=== PATIENT | male | born 1955 ===

== ENCOUNTER 2025-06-24 11:36 | Outpatient (AMB) | payer MEDICARE, SELFPAY ==
--- NOTE | 2025-06-24 11:58 | MHC.OFFVIS ---
Intake Visit Reasons: 6m Vascular Dementia Allergies lisinopril Allergy (Unknown, Verified 06/17/25 09:23) Unknown HPI Comments Details: The patient is a 69-year-old male presenting for further evaluation and management of vascular dementia and consideration of mirtazapine for weight loss and appetite. He has a history of falls, generally controlled using a cane or walker, and previous engagement in physical therapy designed to maintain mobility. His primary care physician has initiated considerations of mirtazapine primarily for weight loss and appetite improvement, a topic also discussed during this visit. Blood pressure management is ongoing, with medications recently prescribed, but perhaps due for a refill soon. His physical activity is generally limited to his home environment, and he has used a wheelchair for longer distances. [facility] Medical History (Updated 06/24/25 @ 12:03 by Rebecca Spears MD) Vascular dementia Review of Systems Const Details: - Neurologic: Reports use of ambulatory aids; Denies recent severe mobility issues. - Psychiatric: Reports discussion of mirtazapine use for appetite and weight loss. - Cardiovascular: Denies issues beyond managed hypertension. - General: Denies significant travel or activities outside of home environments. Physical Exam Neuro Other: Mental Status: Alert and oriented to person, place, and time. Normal attention. Normal spontaneous speech, fluency, and comprehension. Cranial Nerves: CN II: Visual vidal full to confrontation, visual acuity intact. CN III, IV, : Pupils equal, round, reactive to light and accommodation. Extraocular movements are normal. CN V: Facial sensation is normal. CN VII: Facial movements symmetrical. CN VIII: Hearing intact to bedside conversation is normal. CN IX, X: Palate elevates symmetrically. CN XI: Shoulder shrug and head turn symmetrical. CN XII: Tongue midline without atrophy or fasciculations. Moderately severe ataxia for which he was using a walker. Extrapyramidal: Full facial expressions and blinking. No rigidity. Movements are appropriate with no tremor or abnormality. Speech: Normal; no dysarthria or tremor. Assessment & Plan Assessment & Plan (1) Vascular dementia: Code(s): F01.50 - Vascular dementia, unspecified severity, without behavioral disturbance, psychotic disturbance, mood disturbance, and anxiety Category: Medical Qualifiers: Dementia severity: moderate Dementia behavioral or psychological symptom: without behavioral, psychotic, or mood disturbance or anxiety Qualified Code(s): F01.B0 - Vascular dementia, moderate, without behavioral disturbance, psychotic disturbance, mood disturbance, and anxiety Plan Impression: Vascular dementia Rec: Namenda 10mg bid BP meds Statin Baby aspirin daily Walker Medications: New memantine 10 mg PO BID 180 tabs 1RF Coding Level of Care Code Est Pt Level 4 (11069) Diagnoses Moderate vascular dementia without behavioral disturbance, psychotic disturbance, mood disturbance, or anxiety F01.B0 Dementia severity: moderate Dementia behavioral or psychological symptom: without behavioral, psychotic, or mood disturbance or anxiety
--- OUTSIDE RECORDS SUMMARY | 2025-06-24 12:56 | XMS_ITS | Clinical Summary ---
Author Organization [facility] Address [address] [place] [id number] Phone Care Team Providers Care Patient Account Representative Name Role Phone Rich Mendoza Primary Care Provider [phone] Allergies Active Allergy Reactions Criticality Noted Date Comments Lisinopril Other (see comments) 03/23/2007 COUGH Shrimp Extract Other (see comments) 10/19/2024 Medications amLODIPine (NORVASC) 5 MG tablet Take 1 tablet by mouth 1 (one) time each day 4 Active aspirin (ST TRENA) 81 MG EC tablet Take 1 tablet by mouth 1 (one) time each day 4 Active atorvastatin (LIPITOR) 80 MG tablet Take 1 tablet by mouth 1 (one) time each day 4 Active fluticasone (FLONASE) 50 MCG/ACT nasal spray Administer 50 mcg into affected nostril(s) 3 Active losartan (COZAAR) 100 MG tablet Take 1 tablet by mouth 1 (one) time each day 4 Active metoprolol succinate XL (TOPROL XL) 50 MG 24 hr tablet Take 1 tablet by mouth 1 (one) time each day 4 Active psyllium (METAMUCIL) 58.6 % packet Take 1 packet by mouth 1 (one) time each day 2 Active triamterene-hyd roCHLOROthiazid e (MAXZIDE-25) 37.5-25 MG per tablet Take 1 tablet by mouth 1 (one) time each day 4 Active clopidogrel (Plavix) 75 MG tablet Take 75 mg by mouth 3 Active Active Problems Problem Noted Date Diagnosed Date Polyp of colon 10/16/2024 Diverticular disease 10/16/2024 Weakness of left hand 10/16/2024 Prediabetes 01/09/2021 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 History of repair of musculotendinous cuff of sh [place] 09/14/2016 Overview (10/16/2024): 2001 Hyperlipidemia 01/28/2016 Essential hypertension 12/10/2015 Nonsustained ventricular tachycardia 01/03/2015 Overview (10/16/2024): 11 beat run on Holter of 12/2014 History of cerebrovascular accident 06/24/2014 Overview (10/16/2024): Lacunar infarct 11/2014 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 History of repair of hip joint 05/12/2009 Overview (10/16/2024): S/p bilateral total hip replacement by Dr Valderrama Body mass index 30+ - obesity 01/04/2006 Immunizations Immunization Administration Dates Next Due COVID-19 mRNA, bivalent, angelito ginal/Omicron BA.1, Non-[place] (Spikevax Bivalent) Moderna 10/11/2023 Influenza, Unspecified 11/15/2014 Pfizer SARS-COV-2 09/03/2021,12/11/2020,11/20/19 21 Pneumococcal Conjugate 04/14/2023 Shingrix 03/12/2022 Tdap 11/17/2018,07/03/2008 Family History Medical History Relation Comments Hypertension Father joint problems Mother Hypertension Sister Relation Status Comments Father Mother Sister Social History Tobacco Use Types Packs/Day Years Used Date Smoking Tobacco: Never Assessed Sex and Gender Information Value Date Recorded Sex Assigned at Not on file Legal Sex Male 12:14 PM EDT Gender Identity Not on file Sexual Orientation Not on file Last Filed Vital Signs Vital Sign Reading Time Taken Comments Blood Pressure 116/66 11/19/2024 3:19 PM EST Pulse 58 11/19/2024 3:19 PM EST Temperature - - Respiratory Rate - - Oxygen Saturation - - Inhaled Oxygen Concentration - - Weight 82.1 kg (181 lb) 11/19/2024 3:19 PM EST Height 177.8 cm (5' 10 ) 10/19/2024 9:26 AM EST Body Mass Index 25.97 10/19/2024 9:26 AM EST Plan of Treatment Health Maintenance Due Date Last Done Comments Pneumococcal Vaccine: 50+ Ye ars (1 of 2 - PCV) 1976 04/14/2023 Colorectal Cancer Screening: Annual FOBT 2006 Colorectal Cancer Screening: Colonoscopy 2006 Colorectal Cancer Screening: Sigmoidoscopy 2006 Influenza Vaccine (#1) 2025 11/15/2014 Hepatitis B Vaccine Aged Out No longe r eligible based on patient's age to complete this topic Insurance [id number] Medicare Care Teams Patient Account Representative Relationship Specialty Start Date End Date Rich Mendoza [address] [place] [id number] PCP - General Internal Medicine 08/13/24
--- OUTSIDE RECORDS SUMMARY | 2025-06-24 12:56 | XMS_ITS | Clinical Summary ---
Author Organization 175 [facility] Address [address] [place] [address] Phone Care Team Providers Care [employer] Name Role Phone Rich Lafleur MD Primary Care Provider [phone] Allergies Active Allergy Reactions Criticality Noted Date Comments Lisinopril Cough 08/09/2024 Shellfish Derived Unknown 08/12/2024 Shrimp Extract Other 10/19/2024 Medications aspirin 81 mg EC tablet Take 1 tablet (81 mg total) by mouth 1 (one) time each day. Active fluticasone propionate (FLONASE) 50 mcg/actuation nasal spray 1 [place] by Each Nare route daily for 180 days. - Each Nare Active mv-min/folic/vit K/lycop/coQ10 (DAILY MULTIVITAMIN ORAL) Take by mouth 1 (one) time each day. Active psyllium (METAMUCIL) 3.4 gram packet Take 1 packet by mouth 1 (one) time each day. 30 packet 11 09/18/20 24 Active memantine (NAMENDA) 10 mg tablet Take 1 tablet (10 mg total) by mouth 2 (two) times a day. for 90 days 12/17/19 25 Active triamterene-hydr oCHLOROthiazide (MAXZIDE-25) 37.5-25 mg per tabletIndication s:Essential (primary) hypertension TAKE 1 TABLET BY MOUTH EVERY DAY 90 tablet 1 02/06/20 25 Active food supplemt, lactose-reduced (Boost High Protein) 0.08 gram- 1.1 kcal/mL liquid Take 1 Can by mouth 2 (two) times a day. 60 mL 11 05/08/20 25 Active polyethylene glycol (Golytely) 236-22.74-6.74 -5.86 gram solution Take 4L by mouth once for one dose. May substitue any PEG. Starting at 2PM the day before your procedure drink 1 8oz glasses at your own pace until you complete half of the gallon. Finish 2nd half of the gallon at 8PM. 4000 mL 05/17/20 25 Active bisacodyL (DULCOLAX) 5 mg EC tablet Take 2 tablets by mouth right before beginning bowel prep. See instructions provided by the office 2 tablet 05/17/20 25 Active amLODIPine (NORVASC) 5 mg tablet Take 1 tablet (5 mg total) by mouth 1 (one) time each day. 90 tablet 1 06/11/20 25 Active atorvastatin (LIPITOR) 80 mg tabletIndication s:Hyperlipidemia , unspecified Take 1 tablet (80 mg total) by mouth 1 (one) time each day. 90 tablet 1 06/11/20 25 Active losartan (COZAAR) 100 mg tabletIndication s:Essential (primary) hypertension Take 1 tablet (100 mg total) by mouth 1 (one) time each day. 90 tablet 1 06/11/20 25 Active metoprolol succinate (TOPROL-XL) 50 mg 24 hr tablet Take 1 tablet (50 mg total) by mouth 1 (one) time each day. TAKE 1 TABLET BY MOUTH EVERY DAY 90 tablet 1 06/11/20 25 Active metoprolol succinate (TOPROL-XL) 50 mg 24 hr tablet TAKE 1 TABLET BY MOUTH EVERY DAY 025 Discontin ued(Reord er) losartan (COZAAR) 100 mg tabletIndication s:Essential (primary) hypertension Take 1 tablet (100 mg total) by mouth 1 (one) time each day. 90 tablet 1 11/05/20 24 025 Discontin ued(Reord er) atorvastatin (LIPITOR) 80 mg tabletIndication s:Hyperlipidemia , unspecified TAKE 1 TABLET BY MOUTH EVERY DAY 90 tablet 1 02/20/20 25 025 Discontin ued(Reord er) amLODIPine (NORVASC) 5 mg tablet TAKE 1 TABLET BY MOUTH 1 TIME EACH DAY. 90 tablet 1 04/24/20 25 025 Discontin ued(Reord er) Active Problems Problem Noted Date Diagnosed Date Benign prostatic hyperplasia with lower urinary tract symptoms 12/13/2024 Assessment & Plan (12/13/2024 12:40 PM EST): Continue tamsulosin. He has been monitored by urology. Vascular dementia ([facility] V24, [facility] V28) 04/2025 Assessment & Plan (05/08/2025 5:55 PM EDT): Patient's states that patient at times defecates on himself and she has to clean up for him. Patient has a follow-up appointment with neurology coming up for his dementia with behavioral disturbances. Assessment & Plan (02/01/2025 12:27 PM EDT): Underlying dementia, he will follow-up with neurology. Will check his urine analysis and recheck his electrolytes. Continue memantine for now. Assessment & Plan (12/13/2024 12:40 PM EST): He is being prescribed memantine by neurology and has a follow-up appointment booked already. Obesity (BMI 30-39.9) 08/09/2024 Non-sustained ventricular ta chycardia ([facility] V24, [facility] V28) 08/09/2024 Essential hypertension 08/09/2024 Assessment & Plan (05/08/2025 5:55 PM EDT): Follow low-sodium diet. Patient will continue amlodipine, losartan, metoprolol. Assessment & Plan (12/13/2024 12:40 PM EST): Follow low-sodium diet. Continue amlodipine, losartan, triamterene-hydrochlorothiazide. PPD positive, treated 08/09/2024 Prediabetes 08/09/2024 Assessment & Plan (05/08/2025 5:55 PM EDT): We will monitor A1c levels. Orders: Hemoglobin A1c; Future Assessment & Plan (02/01/2025 12:27 PM EDT): Will monitor A1c. Diabetic diet discussed. Orders: Hemoglobin A1c; Future Diverticulosis 08/09/2024 Colon polyp 08/09/2024 Encounters Date Type Department Care Team Description 06/11/2025 4:30 PM EDT Telemedicine Internal Medicine - [address] [phone] Rich Lafleur MD Weight loss (Primary Dx); Hyperlipidemia, unspecified; Essential (primary) hypertension 06/03/2025 10:32 AM EDT Anesthesia Event [facility] [address] [place] [address] Nish Miller DO McAdams, Megan, SIMON 06/03/2025 9:45 AM EDT - 06/03/2025 11:59 PM EDT Hospital Encounter [facility] [address] [place] [phone] Perez Thornton DO Walsh, Michael, DO McAdams, Megan, [employer] Unintentional weight loss; Abnormal CT scan, colon Discharge Disposition: Home or Self Care 06/03/2025 Telephone [facility] [address] [facility] [address] [phone] Perez Thornton DO 05/29/2025 Telephone [facility] [address] [facility] [address] [phone] Perez Thornton DO special procedure 05/08/2025 3:00 PM EDT Office Visit Internal Medicine - [address] [phone] Rich Lafleur MD Weight loss (Primary Dx); Vascular dementia with other behavioral disturbance, unspecified dementia severity (CMS/HCC V24, CMS/HCC V28); Essential hypertension; Prediabetes; Hyperlipidemia, unspecified hyperlipidemia type 05/06/2025 Telephone [facility] [address] [facility] [address] [place] [phone] Rosa Correa LPN Anticoagulation (Colonoscopy on 05/31/[address] Thornton) 04/26/2025 10:40 AM EDT Office Visit [facility] [address] [place] [address] Lexy Choi, DAVID Unintentional weight loss (Primary Dx); Abnormal CT scan, colon; Chronic constipation 04/26/2025 Telephone [facility] [address] [place] [address] Lexy Choi, DAVID from Last 3 Months Immunizations Name Administration Dates Next Due Pfizer (ages 12 & older) Bivalent, COVID-19 03/2023 Pfizer SARS-CoV-2 COVID-19, mRNA, LNP-S, preservative free 09/03/2021 Pneumococcal conjugate 20 va lent (Prevnar 20, PCV 20) 2mo and older 04/14/2023 Tdap Tetanus diptheria acell ular pertussis (Boostrix; Adacel) 7yo and older 11/17/2018,07/03/2008 Zoster recombinant (Shingrix) 19yo and older 04/2022 Surgical History Surgery Date Site/Laterality Comments HIP ARTHROPLASTY 11/2006 PROCEDURE: HISTORICAL HIP REPLACEMENT; COMMENT: LEFT ROTATOR CUFF REPAIR 2000 PROCEDURE: HISTORICAL ROTATOR CUFF REPAIR; COMMENT: RIGHT COLONOSCOPY 09/02/2021 PROCEDURE: HISTORICAL COLONOSCOPY; COMMENT: diverticulosis and polypoid mucosa Medical History Medical History Date Comments Osteoarthrosis, unspecified whether generalized or localized, unspecified site 04/22/2006 DX:Osteoarthrosis, unspecifi ed whether generalized or localized, unspecified site; COMMENT: 2006, THR ON LEFT Genital herpes DX:Genital herpe s Obesity, unspecified 01/04/2006 DX:Obesity, unspecified Essential hypertension, benign 10/20/2005 D X:Essential hypertension, benign Status post hip replacement 05/12/2009 DX:S tatus post hip replacement; COMMENT: Left 2006, right 2008 Positive FIT (fecal immunoch emical test) DX:Positive FIT (fecal immunochemical test) History of CVA (cerebrovascu lar accident) DX:History of CVA (cerebrova scular accident) Cerebrovascular disease DX:Cereb rovascular disease Hyperlipidemia DX:Hyperlipidemi a Diverticulosis DX:Diverticulosi s Colon polyp DX:Colon polyp Family History Medical History Relation Name Comments Depression Brother 1 manic depressio n Other: Renal failure Brother 2 Hypertension Father Other: Joint problems Mother hip re placement Hypertension Sister ? Relation Name Status Comments Brother 1 Brother 2 Father (Age 48) cardiac di sease, etoh Mother Alive alzheimers Sister Social History Tobacco Use Types Packs/Day Years Used Date Smoking Tobacco: Former Cigarettes 0.1 1 0 11/07/1969 - 11/07/1970 Smokeless Tobacco: Never Tobacco Cessation:Counseling Given: Not Answered Alcohol Use Standard Drinks/Week Comments Yes 5.8 (1 standard drink = 0.6 oz p ure alcohol) Interpersonal Safety Answer Date Record ed Physical Abuse 06/03/2025 Verbal Abuse 06/03/2025 Sex and Gender Information Value Date Recorded Sex Assigned at Male 05/20/2025 12:12 PM EDT Legal Sex Male 6:08 PM EST Gender Identity Male 05/20/2025 12:12 PM EDT Sexual Orientation Not on file Obstetrics History Last Filed Vital Signs Vital Sign Reading Time Taken Comments Blood Pressure 141/78 06/03/2025 11:14 AM EDT Pulse 69 06/03/2025 11:14 AM EDT Temperature 36.5 C (97.7 F) 06/03/2025 10:54 AM EDT Respiratory Rate 15 06/03/2025 11:14 AM EDT Oxygen Saturation 97% 06/03/2025 11:14 AM EDT Inhaled Oxygen Concentration - - Weight 65.8 kg (145 lb) 06/03/2025 10:16 AM EDT Height 177.8 cm (5' 10 ) 06/03/2025 10:16 AM EDT Body Mass Index 20.81 06/03/2025 10:16 AM EDT Plan of Treatment Upcoming Encounters Date Type Department Care Team (Late st Contact Info) Description 06/28/2025 2:30 PM EDT Hospital Encounter [facility] Endoscopy [address] [place] [phone] Perez Thornton DO 175 [facility] [address] [place] [address] Saad Solomon CRNA 114 [facility] [address] [place] [address] 07/23/2025 10:20 AM EDT Office Visit [facility] [address] [facility] [address] [place] [phone] Rene Grewal MD 300 [facility] [address] [place] [address] Health Maintenance Due Date Last Done Comments Zoster Vaccines (2 of 2) 05/07/2022 03/12/2022 Abdominal Aortic Aneurysm (AAA) Screen 10/16/2022 Hepatitis C Screening 10/16/2022 Medicare Annual Wellness Visit 10/16/2022 Social Influencers of Health Screening 10/16/2022 COVID-19 Vaccine ( season) 2024 02/22/2024, 10/11/2023, 08/19/2022, Additional history exists Depression Screening 11/07/2024 Influenza Vaccine (#1) 2025 Hypertension/CHF/CAD Annual BMP Blood Test 02/11/2026 02/11/2025, 01/08/2025, 01/08/2025, Additional history exists Falls Risk Assessment 06/03/2026 06/03/2025 DTaP,Tdap,and Td Vaccines (3 - Td or Tdap) 11/17/2028 11/17/2018, 07/03/2008 Cholesterol Screening (Lipid Panel) 05/14/2030 05/14/2025, 08/10/2024, 04/14/2023 RSV Immunization Adult Patients (1 - 1-dose 75+ series) 2032 Colorectal Cancer Screening: Colonoscopy 06/03/2035 06/03/2025 Pneumococcal Vaccine: 50+ Years Completed 04/14/2023 HIB Vaccines Aged Out No longer eligi ble based on patient's age to complete this topic HPV Vaccines Aged Out No longer eligi ble based on patient's age to complete this topic Hepatitis A Vaccines Aged Out No long er eligible based on patient's age to complete this topic Hepatitis B Vaccines Aged Out No long er eligible based on patient's age to complete this topic IPV Vaccines Aged Out No longer eligi ble based on patient's age to complete this topic MMR Vaccines Aged Out No longer eligi ble based on patient's age to complete this topic Meningococcal ACWY Vaccine Aged Out N o longer eligible based on patient's age to complete this topic Meningococcal B Vaccine Aged Out No l onger eligible based on patient's age to complete this topic RSV Immunization Patients Under 20 months Aged Out No longer eligible based on patient's age to complete this topic Varicella Vaccines Aged Out No longer eligible based on patient's age to complete this topic Goals Goal Patient Goal Type Associated Problems Recent Progress Patient-Stated? Author PT LTGs General No Wilmer Soler, PT Note: Pt will increase FGA with LAD to to indicate improved balance with functional mobility Pt will achieve left heel strike at initial contact for improving ambulation safety Pt will complete ambulate x1000 ft in 6 minutes with LAD Pt will be independent with HEP OT LTGs General Yes Marycarmen Corea, OT Note: 1- Pt will demo increased L shoulder strength / to be able to reach into closet, overhead cabinets to put things away 02/11/25 MET 2- Pt will demo increased FMC in his L hand to be able to cut his food and do his fasteners Mago. 02/11/25 Able to do fasteners/zippers; however 9-hole and B&B scores do not demo improvement 3- Pt will be I with HEP 02/11/25 Reviewed w/ step-dtr, see note Pt goal General Yes Marycarmen Corea, OT Note: To increase strength to function as he did prior to CVA Procedures Procedure Name Priority Date/Time Associated Diagnosis Comments COLONOSCOPY Routine 06/03/2025 10:53 AM EDT Unintentional weight loss Abnormal CT scan, colon TISSUE EXAM Routine 06/03/2025 10:49 AM EDT Unintentional weight loss Abnormal CT scan, colon LIPID PANEL WITH REFLEX TO DIRECT LDL Routine 05/14/2025 9:21 AM EDT Hyperlipidemia, unspecified hyperlipidemia type HEMOGLOBIN A1C Routine 05/14/2025 9:21 AM EDT Prediabetes BASIC METABOLIC PANEL Routine 02/11/2025 9:37 AM EDT Elevated serum creatinine from Last 3 Months or Most Recently Relevant to Health Maintenance Results * COLONOSCOPY Anesthesia - MAC; [facility] ENDOSCOPY (06/03/2025 10:53 AM EDT) Anatomical Region Laterality Modality Endoscopy 06/03/2025 10:2 1 AM EDT Impressions 06/03/2025 10:51 AM EDT - One 6 mm polyp in the sigmoid colon, removed with a cold snare. Resected and retrieved. - The examination was otherwise normal on direct and retroflexion views. Recommendation: - Discharge patient to home. - High fiber diet. - Continue present medications. - Await pathology results. - Repeat colonoscopy for surveillance based on pathology results. Narrative 06/03/2025 10:51 AM EDT [facility] GI Patient Name: Fred Kim Procedure Date: 06/03/2025 10:21 AM Date of : 1955 Age: 69 Gender: Male Note Status: Finalized Attending MD: Perez Thornton DO, [id number] Procedure Date No Time: 06/03/2025 Procedure: Colonoscopy Indications: Weight loss, Abnormal CT scan of the abdomen Providers: Perez Thornton DO Referring MD: Rich Lafleur MD Medicines: Monitored Anesthesia Care Complications: No immediate complications. Estimated blood loss: Minimal. Estimated Blood Loss: Estimated blood loss was minimal. Procedure: Pre-Anesthesia Assessment: - - Prior to the procedure, a History and Physical was performed, and patient medications and allergies were reviewed. The patient is competent. The risks and benefits of the procedure and the sedation options and risks were discussed with the patient. All questions were answered and informed consent was obtained. Patient identification and proposed procedure were verified by the physician, the nurse, the anesthesiologist, the hair dresser and the hazardous material technician in the pre-procedure area in the endoscopy suite. Mental Status Examination: alert and oriented. Airway Examination: normal oropharyngeal airway and neck mobility. Respiratory Examination: clear to auscultation. CV Examination: normal. Prophylactic Antibiotics: The patient does not require prophylactic antibiotics. Prior Anticoagulants: The patient has taken no anticoagulant or antiplatelet agents. ASA Grade Assessment: II - A patient with mild systemic disease. After reviewing the risks and benefits, the patient was deemed in satisfactory condition to undergo the procedure. The anesthesia plan was to use monitored anesthesia care (MAC). Immediately prior to administration of medications, the patient was re-assessed for adequacy to receive sedatives. The heart rate, respiratory rate, oxygen saturations, blood pressure, adequacy of pulmonary ventilation, and response to care were monitored throughout the procedure. The physical status of the patient was re-assessed after the procedure. After I obtained informed consent, the scope was passed under direct vision. Throughout the procedure, the patient's blood pressure, pulse, and oxygen saturations were monitored continuously. The Colonoscope was introduced through the anus and advanced to the terminal ileum. The colonoscopy was performed without difficulty. The patient tolerated the procedure well. The quality of the bowel preparation was good. Findings: Small internal hemorrhoids were found on retroflexion. A few small-mouthed diverticula were found in the sigmoid colon and descending colon. There was no evidence of diverticular bleeding. A 6 mm polyp was found in the sigmoid colon. The polyp was sessile. The polyp was removed with a cold snare. Resection and retrieval were complete. Verification of patient identification for the specimen was done. Estimated blood loss was minimal. The exam was otherwise without abnormality on direct and retroflexion views. Procedure Code(s): --- Professional --- 58522, Colonoscopy, flexible; with removal of tumor(s), polyp(s), or other lesion(s) by snare technique Diagnosis Code(s): --- Professional --- D12.5, Benign neoplasm of sigmoid colon R63.4, Abnormal weight loss CPT copyright 2020 [employer]. All rights reserved. The codes documented in this report are preliminary and upon messenger copy review may be revised to meet current compliance requirements. PEREZ Thornton DO 06/03/2025 10:51:15 AM This report has been signed electronically.Perez Thornton DO Number of Addenda: 0 Note Initiated On: 06/03/2025 10:21 AM Scope Withdrawal Time: 0 hours 6 minutes 48 seconds Scope In: 10:38:24 AM Scope Out: 10:49:53 AM Endoscopy Department at [facility] - [address] [place] [phone] Procedure Note Perez Thornton DO - 06/03/2025 [facility] GI Patient Name: Fred Kim Procedure Date: 06/03/2025 10:21 AM Date of : 1955 Age: 69 Gender: Male Note Status: Finalized Attending MD: Perez Thornton DO, [id number] Procedure Date No Time: 06/03/2025 Procedure: Colonoscopy Indications: Weight loss, Abnormal CT scan of the abdomen Providers: Perez Thornton DO Referring MD: Rich Lafleur MD Medicines: Monitored Anesthesia Care Complications: No immediate complications. Estimated blood loss: Minimal. Estimated Blood Loss: Estimated blood loss was minimal. Procedure: Pre-Anesthesia Assessment: - - Prior to the procedure, a History and Physicalwas performed, and patient medications and allergieswere reviewed. The patient is competent. The risks and benefits of the procedure and the sedation optionsand risks were discussed with the patient. Allquestions were answered and informed consent was obtained. Patient identification and proposed procedure were verified by the physician, the nurse, the anesthesiologist, the hair dresser and thetechnician in the pre-procedure area in the endoscopy suite. Mental Status Examination: alert and oriented.Airway Examination: normal oropharyngeal airway and neck mobility. Respiratory Examination: clear to auscultation. CV Examination: normal. Prophylactic Antibiotics: The patient does not requireprophylactic antibiotics. Prior Anticoagulants: The patient has taken no anticoagulant or antiplatelet agents. ASA Grade Assessment: II - A patient with mild systemic disease. After reviewing the risks and benefits,the patient was deemed in satisfactory condition to undergo the procedure. The anesthesia plan was touse monitored anesthesia care (MAC). Immediately priorto administration of medications, the patient was re-assessed for adequacy to receive sedatives. The heart rate, respiratory rate, oxygen saturations, blood pressure, adequacy of pulmonary ventilation,and response to care were monitored throughout the procedure. The physical status of the patient was re-assessed after the procedure. After I obtained informed consent, the scope was passed under direct vision. Throughout theprocedure, the patient's blood pressure, pulse, and oxygen saturations were monitored continuously. The Colonoscope was introduced through the anus and advanced to the terminal ileum. The colonoscopy was performed without difficulty. The patient tolerated the procedure well. The quality of the bowel preparation was good. Findings: Small internal hemorrhoids were found onretroflexion. A few small-mouthed diverticula were found in the sigmoid colon and descending colon. There was no evidence of diverticular bleeding. A 6 mm polyp was found in the sigmoid colon. Thepolyp was sessile. The polyp was removed with a coldsnare. Resection and retrieval were complete. Verificationof patient identification for the specimen was done. Estimated blood loss was minimal. The exam was otherwise without abnormality ondirect and retroflexion views. Procedure Code(s): --- Professional --- 56548, Colonoscopy, flexible; with removal of tumor(s), polyp(s), or other lesion(s) by snare technique Diagnosis Code(s): --- Professional --- D12.5, Benign neoplasm of sigmoid colon R63.4, Abnormal weight loss CPT copyright 2020 [employer]. All rights reserved. The codes documented in this report are preliminary and upon messenger copy reviewmay be revised to meet current compliance requirements. PEREZ Thornton DO 06/03/2025 10:51:15 AM This report has been signed electronically.Perez Thornton DO Number of Addenda: 0 Note Initiated On: 06/03/2025 10:21 AM Scope Withdrawal Time: 0 hours 6 minutes 48 seconds Scope In: 10:38:24 AM Scope Out: 10:49:53 AM Endoscopy Department at [facility] - [address] [place] [phone] IMPRESSION: - One 6 mm polyp in the sigmoid colon, removed with a cold snare. Resected and retrieved. - The examination was otherwise normal on directand retroflexion views. Recommendation: - Discharge patient to home. - High fiber diet. - Continue present medications. - Await pathology results. - Repeat colonoscopy for surveillance based on pathology results. us Perez Thornton DO GI~PROCEDURE ORDERABLES Final Re sult * Tissue exam (06/03/2025 10:49 AM EDT) Final Diagnosis Sigmoid Colon, polyp: Nondiagnostic . Inflamed and denuded strips of colonic mucosa and fecal debris. No intact surface epithelium identified. Multiple levels are evaluated. 06/05/2025 1:46 PM EDT [facility] Gross Description A. Large Intestine, Sigmoid Colon, polyp: Labeled polyp sig colon . Received in formalin is a soft, larry-red, 0.8 cm in greatest diameter flat, polypoid tissue admixed with fecal/food debris which is inked black at the base, bisected, wrapped in paper and submitted in entirety in one cassette, two + multiple pieces, multiple levels. TS 06/05/2025 1:46 PM EDT [facility] Disclaimer Unless otherwise specified, all tissue is 10% NB formalin fixed and paraffin embedded. 06/05/2025 1:46 PM EDT [facility] Tissue Sigmoid colon structure / Unknown 06/03/2025 10:49 AM EDT 06/03/2025 11:06 AM EDT Perez Thornton DO LAB PATHOLOGY ORDERABLES Final R esult [facility] [address] [place] [address], * Lipid panel with reflex to direct LDL (05/14/2025 9:21 AM EDT) Cholesterol 156 0 - 200 mg/dL LAB CHEMISTRY METHOD 05/14/2025 1:35 PM EDT [facility] Triglycerides 45 0 - 150 mg/dL LAB CHEMISTRY METHOD 05/14/2025 1:35 PM EDT [facility] HDL 88 >=40 mg/dL LAB CHEMISTRY METHOD 05/14/2025 1:35 PM EDT [facility] LDL Calculated 59 0 - 100 mg/dL LAB CHEMISTRY METHOD 05/14/2025 1:35 PM EDT [facility] VLDL Cholesterol Norberto 9 mg/dL LAB CHEMISTRY METHOD 05/14/2025 1:35 PM EDT [facility] Non HDL Chol. (LDL+VLDL) 68 <145 mg/dL LAB CHEMISTRY METHOD 05/14/2025 1:35 PM EDT [facility] Chol/HDL Ratio 1.8 0.0 - 4.4 LAB CHEMISTRY METHOD 05/14/2025 1:35 PM EDT [facility] Blood Venous blood specimen / Unknown Venipuncture / Unknown 05/14/2025 9:21 AM EDT 05/14/2025 9:21 AM EDT Rich Lafleur MD LAB BLOOD ORDERABLES Karen l Result Performing Organization Address City/[facility]/ZIP Co de Phone Number [facility] [address] [place] [address], [place] [phone] * Hemoglobin A1c (05/14/2025 9:21 AM EDT) Hemoglobin A1C 6.4 <6.5 % LAB CHEMISTRY METHOD 05/14/2025 2:13 PM EDT [facility] Mean Bld Glu Estim. 137 mg/dL LAB CHEMISTRY METHOD 05/14/2025 2:13 PM EDT [facility] Blood Venous blood specimen / Unknown Venipuncture / Unknown 05/14/2025 9:21 AM EDT 05/14/2025 9:21 AM EDT Rich Lafleur MD LAB BLOOD ORDERABLES Karen l Result [facility] [address] [place] [address], [place] [phone] * (ABNORMAL) Basic metabolic panel (02/11/2025 9:37 AM EDT) Sodium 138 133 - 145 mmol/L LAB CHEMISTRY METHOD 02/11/2025 1:13 PM [facility] Potassium 3.7 3.5 - 5.5 mmol/L LAB CHEMISTRY METHOD 02/11/2025 1:13 PM [facility] Chloride 105 96 - 110 mmol/L LAB CHEMISTRY METHOD 02/11/2025 1:13 PM [facility] CO2 28 21 - 32 mmol/L LAB CHEMISTRY METHOD 02/11/2025 1:13 PM [facility] Anion Gap 5 3 - 11 LAB CHEMISTRY METHOD 02/11/2025 1:13 PM [facility] Glucose 147(H) 70 - 100 mg/dL LAB CHEMISTRY METHOD 02/11/2025 1:13 PM [facility] BUN 28(H) 5 - 25 mg/dL LAB CHEMISTRY METHOD 02/11/2025 1:13 PM [facility] Creatinine 1.59(H) 0.70 - 1.30 mg/dL LAB CHEMISTRY METHOD 02/11/2025 1:13 PM [facility] eGFR 47(L) >=60 mL/min/1. 73m2 LAB CHEMISTRY METHOD 02/11/2025 1:13 PM [facility] Comment:Calculation based on the Chronic Kidney Disease Epidemiology Collaboration (CKD-EPI) equation refit without adjustment for race. BUN/Creatinine Ratio 17.6 LAB CHEMISTRY METHOD 02/11/2025 1:13 PM [facility] Calcium 10.1 8.5 - 10.5 mg/dL LAB CHEMISTRY METHOD 02/11/2025 1:13 PM [facility] Blood Venous blood specimen / Unknown Venipuncture / Unknown 02/11/2025 9:37 AM EDT 02/11/2025 9:37 AM EDT us Rich Lafleur MD LAB BLOOD ORDERABLES Karen goldsmith Result [facility] [address] [place] [address], from Last 3 Months or Most Recently Relevant to Health Maintenance Insurance [employer] MEDICARE Advance Directives Documents on File Type Date Recorded Patient Career Services Coordinator Expl anation Health Care Decision (hx) 08/12/2024 HE ALTH CARE PROXY Health Care Decision (hx) 08/12/2024 HE ALTH CARE PROXY 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
== END 2025-06-24 12:07 | disposition home or self-care (01) ==
LOC: HO.HSM 11:36
PROVIDERS: PCP Internal Medicine; Referring Provider Internal Medicine; Visit Provider Psychiatry & Neurology Neurology
DX: F01.B0 Vascular dementia, moderate, without behavioral disturbance, psychotic disturbance, mood disturbance, and anxiety (principal)
CPT/HCPCS: 99214

== ENCOUNTER → 2025-06-24 11:36 | Outpatient (BNVA) | payer MEDICARE, SELFPAY | PROVIDERS: PCP Internal Medicine; Referring Provider Internal Medicine; Visit Provider Psychiatry & Neurology Neurology | DX: F01.B0 Vascular dementia, moderate, without behavioral disturbance, psychotic disturbance, mood disturbance, and anxiety (principal) | CPT/HCPCS: 99212 ==